=== PATIENT | male | born 1995 | race African-American/Black ===

== ENCOUNTER 2019-07-01 13:00 | Emergency (ER) | payer OTHER ==
[~2019-07-01] VITALS: Ht 185.4 cm; Wt 79.4 kg
[2019-07-01] MEDS ORDERED: NAPROSYN500 MG PO (15:57)
[2019-07-01 16:54] VITALS: BP 000/00
== END 2019-07-01 16:50 | disposition home or self-care (01) ==
LOC: ER 13:00
DX: S93.692A Other sprain of left foot, initial encounter (principal); X58.XXXA Exposure to other specified factors, initial encounter; Y92.89 Other specified places as the place of occurrence of the external cause; Y93.61 Activity, american tackle football; Y99.8 Other external cause status